=== PATIENT | female | born 1990 | race Caucasian/White ===

== ENCOUNTER 2018-04-17 16:23 | Emergency (ER) | payer OTHER ==
[2018-04-17 16:48] VITALS: BP 112/64
--- NOTE | 2018-04-17 17:04 | ED Physician Documentation ---
Lower Extremity Injury - HISTORIAN Historian: patient, spouse - HPI Stated Complaint: Right foot injury Chief Complaint: Lower Extremity Injury Additional Information: jumped ankle foot rt sprain-playing w/child in floor saw spider jumped pain rt lat mid foot w loud pop - unable wt bear since Onset: hours (1530) Where: home Severity: moderate Context: twist Associated Symptoms:: numbness distally, snapping sensation, popping sensation. denies: swelling Modifying Factors:: pain on movement (even gentle palpation) - ROS CONST: no problems CVS/RESP: none GI/: denies: problems urinating, nausea, vomiting MS/SKIN/LYMPH: none NEURO: denies: headache, head injury - PAST HX Past History: none Allergies/Adverse Reactions: Allergies Allergy/AdvReac Type Severity Reaction Status Date / Time diphenhydramine Allergy Verified 04/17/18 16:38 [From Benadryl] Home Medications: Ambulatory Orders Medication Instructions Recorded Vit/Iron Fum/Folic AC 1 tab PO D 04/17/18 [ Tablet] - SOCIAL HX Smoking History: non-smoker Alcohol Use: none Drug Use: none - FAMILY HX Family History: none - VITAL SIGNS Vital Signs: Vital Signs Temp Pulse Resp BP Pulse Ox 98.3 F 87 16 112/64 98 04/17/18 16:34 04/17/18 16:34 04/17/18 16:34 04/17/18 16:34 04/17/18 16:34 - REVIEWED ASSESSMENTS Nursing Assessment Reviewed: Yes Vitals Reviewed: Yes ED Results Lab/Radiology - Radiology Radiology Impressions: klno osseous deformity or avulsion seen - Orders Orders: ED Orders Category Date Time Status XRAY FOOT [FOOT 3 VIEWS OR MORE] [RAD] Stat Exams 04/17/18 Completed Lower Extremities Injury Phy - Physical Exam General Appearance: mild distress Gait: unable to bear weight Neuro/Vascular/Tendon: no vascular compromise, motor nml, sensation nml. No: abnml color, abnml warmth, abnml cap refill, pulse deficit, sensory deficit Neck/Back: nml inspection Resp/CVS: chest non-tender, breath sounds nml, heart sounds nml Abdomen: non-tender Discharge Clincal Impression: acute ligt sprain rt foot lateral; aspec Referrals: Primary Doctor,No [Primary Care Provider] - 2 Days Comments: use crutch cane or walker-pt says has crutches at home--tylenol or ibu prn pain Condition: Good Disposition: 01 HOME, SELF-CARE Decision to Admit: NO Decision Time: 18:20
--- NOTE | 2018-04-17 17:53 | Diagnostic Imaging Report ---
DESIREE CHIN [facility] [id number] [facility] [address] [id number] Report Submission Date: Apr 17, 2018 5:46:57 PM [employer] Patient Study Name: DELORES CONRAD Date: Apr 17, 2018 5:01:26 PM [employer] Modality Type: DX Gender: F Description: LOWER EXTREMITY : 86 Institution: [facility] Physician: DESIREE CHIN Right foot, 3 views History: Injury, pain Findings: The patient was known to be at the time of the examination and was appropriately shielded. The osseous, joint and soft tissue structures are normal. Impression: Normal. Electronically signed on Apr 17, 2018 5:46:57 PM [employer] by: Dylon DANIEL
== END 2018-04-17 18:29 | disposition home or self-care (01) ==
LOC: ED 16:23
DX: S93.401A Sprain of unspecified ligament of right ankle, initial encounter (principal); W18.40XA Slipping, tripping and stumbling without falling, unspecified, initial encounter; Y92.9 Unspecified place or not applicable; Z33.1 Pregnant state, incidental
CPT/HCPCS: 73630; 99282; 99283